=== PATIENT | female | born 1990 | race Caucasian/White ===

== ENCOUNTER 2017-11-25 22:10 | Observation (INO) | payer SELFPAY ==
[~2017-11-25] VITALS: Ht 152.4 cm; Wt 70.3 kg
[~2017-11-25 22:10] MED LIST: CEPH500T7 PO; PREN-127 PO; SULF-198 PO
[2017-11-25 22:30] VITALS: BP 117/68; Ht 152.4 cm; Wt 70.3 kg
[2017-11-25] MEDS ORDERED: ACET-1966 PO (23:28)
== END 2017-11-26 00:20 | disposition home or self-care (01) ==
LOC: OB 22:10
PROVIDERS: ADMIT Student in an Organized Health Care Education/Training Program; ATTEND Student in an Organized Health Care Education/Training Program
DX: O26.892 Other specified pregnancy related conditions, second trimester (principal); Z3A.24 24 weeks gestation of pregnancy
CPT/HCPCS: 81001; G0378; G0379

== ENCOUNTER 2018-01-16 02:24 | Inpatient (IN) | payer SELFPAY ==
[~2018-01-16] VITALS: Ht 152.4 cm; Wt 76.2 kg
[~2018-01-16 02:24] MED LIST changes: +ACET-1966 PO
[2018-03-14] MEDS ORDERED: fentaNYL CITR 100 MCG/2 ML AMP IVP PRN (05:35)
[2018-03-14] MEDS ORDERED: METOCLOPRAMIDE 10 MG/2 ML SDV IVP PRN (05:35)
[2018-03-14] MEDS ORDERED: FAMOTIDINE(*) 20MG/50ML PREMIX 50 ML IVPB PRN (05:35)
[2018-03-14] MEDS ORDERED: cefOXitin/DEX(*) 2GM/50ML PREM 50 ML IVPB PRN (05:35)
[2018-03-14] MEDS ORDERED: LR(*) 1000 ML BAG 1,000 ML IV PRN (05:35)
[2018-03-14] MEDS ORDERED: OXYTOCIN 30 UNIT/D5LR 500 ML 500 ML IV PRN (05:35)
[2018-03-14] MEDS ORDERED: FLUSH 10 ML SYR IVP PRN (05:35)
[2018-03-14] MEDS ORDERED: LIDOCAINE 1% LOCAL 300 MG/30ML INJ PRN (05:35)
[2018-03-14 06:00] VITALS: BP 125/81; Ht 152.4 cm; Wt 76.2 kg
[2018-03-14 06:09] LABS: PLATELET COUNT, AUTOMATED 204 K/uL (150-450)
--- NOTE | 2018-03-14 08:35 | History & Physical ---
History of Present Illness Age of Patient: 27 : 9 Para or TPAL: 3144 EDC per LMP: Mar 16, 2018 Estimated Gestational Age: 39.5 Chief Complaint induction History of Present Illness The patient is a 27 year old 9 para 3144 admitted at 39 5/7 weeks estimated gestational age with an estimated date of delivery 03/16/18. Patient is admitted for induction of labor. No vaginal bleeding. Good movement and occasional contractions. She was evaluated for active labor. She had an uncomplicated course. Her record was reviewed. History Allergies: Coded Allergies: No Known Drug Allergies (Unverified , 08/16/17) Med Rec Home Meds Reported Medications Vits W-Ca,Fe,Fa(<1MG) ( VITAMINS) 1 Each Tablet, 1 EACH PO DAILY, TAB 08/16/17 Discontinued Reported Medications Acetaminophen (TYLENOL) 325 Mg Tablet, 325 MG PO, TAB 11/25/17 Exam General Exam Vital Signs Vital Signs Date Time Temp Pulse Resp B/P (MAP) Pulse Ox O2 Delivery O2 Flow Rate FiO2 03/14/18 06:00 97.8 75 16 125/81 (96) 95 Room Air Cardiovascular: Regular Rate and Rhythm Respiratory: Clear to Auscultation Abdomen: Gravid - Non-Tender Extremities: No Edema Cervical Dialation: 4 Cervical Effacement (%): 75 Cervical Consistency: Soft Cervical Position: Mid Station: 0 Presentation: Vertex Uterine Contractions(Q min): 3 Fetus Heart Tones: 120 FHT Category: I Medical Decision Making Data Points Result Diagram: 03/14/18 0602 Assessment and Plan Problems: (1) , normal subsequent Assessment & Plan: elective induction started on pitocin this am AROM clear fluid will monitor for change in cervix Copies to: HERMINIA SANCHEZ MD, JOHN MD Mar 14, 2018 08:35
[2018-03-14] MEDS ORDERED: MAGNESIUM HYDROXIDE* 30ML UDCP PO PRN (09:55)
[2018-03-14] MEDS ORDERED: ACETAMINOPHEN 325 MG TAB PO PRN (09:55)
[2018-03-14] MEDS ORDERED: LANOLIN OINT 7 GM TUBE TP PRN (09:55)
[2018-03-14] MEDS ORDERED: GLYCERIN/WITCH HAZEL LEAF 1 PK TP PRN (09:55)
[2018-03-14] MEDS ORDERED: BENZOCAINE 20% 60 ML BTL TP PRN (09:55)
--- NOTE | 2018-03-14 09:57 | OB Delivery Note ---
Delivery Note Vaginal Delivery Type: Spont. Vaginal Delivery Delivery Date: Mar 14, 2018 Delivery Time: 09:38 Estimated Gestational Age(wks): 39.5 Delivery Anesthesia: Local Infant Sex: Male Weight (gms): 3[address] [place] Apgars: 1 Minute (8), 5 Minute (8) Repair Needed: Laceration, Superficial, Vaginal Estimated Blood Loss: 400 Notes: PITOCIN INDUCTION, AROM CLEAR FLUID, PROGRESSED THROUGH LABOR, PUSHED EFFECTIVELY DELIVERED WITHOUT COMPLICATIONS, SUPERFICIAL LACERATION REPAIRED WITH 3-0 VICRYL Data Reporting Analyst in Attendence: No Copies to: HERMINIA SANCHEZ MD, JOHN MD Mar 14, 2018 09:57
[2018-03-14] MEDS: HYDROCORTISONE 2.5% CR 30GM TB PR PRN (10:45)
[2018-03-14] MEDS: HYDROmorphone HCL 2 MG TAB PO PRN ×3 (10:45→20:30)
[2018-03-14] MEDS ORDERED: LIDO/EPI 2% MPF 1:200,000 20ML ONE (10:55)
[2018-03-14 12:00] VITALS: BP 101/64
[2018-03-14] MEDS: IBUPROFEN 800 MG TAB PO SCH (13:21)
[2018-03-14 14:50] VITALS: BP 108/65
[2018-03-14] MEDS ORDERED: IBUPROFEN 800 MG TAB PO SCH ×2 (17:00)
[2018-03-14 19:30] VITALS: BP 104/67
[2018-03-14] MEDS: DOCUSATE CALCIUM 240 MG CAP PO SCH (20:29)
[2018-03-14 23:05] VITALS: BP 115/81
[2018-03-15] MEDS: IBUPROFEN 800 MG TAB PO SCH ×3 (00:48→17:49)
[2018-03-15] MEDS: HYDROmorphone HCL 2 MG TAB PO PRN ×3 (03:23→20:18)
[2018-03-15 03:30] VITALS: BP 118/77
[2018-03-15] MEDS: HYDROCORTISONE 2.5% CR 30GM TB PR PRN (03:31)
[2018-03-15 07:40] VITALS: BP 122/70
[2018-03-15] MEDS ORDERED: ONDANSETRON 4 MG/2 ML VIAL IVP PRN (08:25)
--- NOTE | 2018-03-15 08:26 | OB/GYN Progress Note ---
OB Subjective Progress Notes Subjective Pain controlled, Tolerating diet and activity. Baby . Normal lochia. GI: POS Nausea, POS Flatus, NEG Vomiting : Voiding Well Pain: Mild OB Objective Physical Exam Vital Signs Date Time Temp Pulse Resp B/P (MAP) Pulse Ox O2 Delivery O2 Flow Rate FiO2 03/15/18 03:30 97.6 53 19 118/77 (91) Room Air 03/14/18 12:00 100 Cardiovascular: Regular Rate and Rhythm Respiratory: Clear to Auscultation Abdomen: Fundus Firm Extremities: No Edema Result Diagram: 03/15/18 0614 Assessment and Plan Problems: (1) , normal subsequent Status: Resolved (2) care following vaginal delivery Assessment & Plan: Pain controlled, Tolerating activity, some nausea this am. Baby . Normal lochia. HERMINIA SANCHEZ MD Mar 15, 2018 08:26
[2018-03-15] MEDS ORDERED: HYDR2TAB4 PO (08:39)
[2018-03-15] MEDS ORDERED: IBUP800T37 PO (08:39)
--- NOTE | 2018-03-15 08:40 | OB/GYN Discharge Summary ---
Discharge Summary Reason for Hosp/Final Diag: (1) , normal subsequent Status: Resolved (2) care following vaginal delivery Hospital Course & Plan: Vaginal delivery on day 1, Pain controlled, Tolerating diet and activity. Baby . Normal lochia. Lates Vital Signs Vital Signs Date Time Temp Pulse Resp B/P (MAP) Pulse Ox O2 Delivery O2 Flow Rate FiO2 03/15/18 03:30 97.6 53 19 118/77 (91) Room Air 03/14/18 12:00 100 Weight (Pounds): 168 Result Diagram: 03/15/18 0614 Condition: Improved Discharge: Home, Self [facility] Meds Active Scripts Ibuprofen (IBUPROFEN) 800 Mg Tablet, 1 TAB PO Q8H, #30 TAB 0 Refills Take with food every 8 hours. Prov:HERMINIA HANLEY MD 03/15/18 Hydromorphone Hcl (HYDROMORPHONE HCL) 2 Mg Tablet, 2-4 MG PO Q4H for PAIN, #20 TAB 0 Refills Prov:HERMINIA HANLEY MD 03/15/18 Reported Medications Vits W-Ca,Fe,Fa(<1MG) ( VITAMINS) 1 Each Tablet, 1 EACH PO DAILY, TAB 08/16/17 Discontinued Reported Medications Acetaminophen (TYLENOL) 325 Mg Tablet, 325 MG PO, TAB 11/25/17 Follow up with: Dr. Hanley [phone] Follow up in: 6 wks PP or PO Discharge Diet: As Tolerates Discharge Activity: Pelvic Rest Copies to: HERMINIA HANLEY MD, JOHN MD Mar 15, 2018 08:40
[2018-03-15] MEDS: MULTIVITAMINS (PRENATAL) TAB PO SCH (09:27)
[2018-03-15] MEDS: DOCUSATE CALCIUM 240 MG CAP PO SCH ×2 (09:27→20:18)
[2018-03-15] MEDS ORDERED: INFLUENZA VIRUS VAC 0.5 ML SYR IM ONLY ONE (09:55)
[2018-03-15] MEDS ORDERED: DIPHTH/TETANUS/ACEL. PERTUSSIS IM ONLY ONE (09:55)
[2018-03-15] MEDS ORDERED: MEASLES,MUMP,RUBELLA VAC 0.5ML SUBQ ONE (09:55)
[2018-03-15 12:00] VITALS: BP 104/69
[2018-03-15 16:30] VITALS: BP 108/76
[2018-03-15 19:30] VITALS: BP 112/74
[2018-03-15 23:30] VITALS: BP 114/66
[2018-03-16] MEDS: IBUPROFEN 800 MG TAB PO SCH ×2 (01:09→08:39)
[2018-03-16 06:35] VITALS: BP 109/70
[2018-03-16] MEDS: HYDROCORTISONE 2.5% CR 30GM TB PR PRN (06:37)
[2018-03-16] MEDS: HYDROmorphone HCL 2 MG TAB PO PRN ×2 (06:37→11:03)
[2018-03-16 08:00] VITALS: BP 101/66
--- NOTE | 2018-03-16 08:24 | OB/GYN Progress Note ---
OB Subjective Progress Notes Subjective Doing good. Reports pain controlled. Tolerating PO pain medications. Lochia appropriate. Voiding with out difficulty. GI: NEG Nausea, NEG Vomiting, NEG Flatus, NEG Bowel Movement : Voiding Well, Vaginal Bleeding, Scant Pain: Mild, Tolerating PO Pain Meds Neurological: No Headache, No Other Eyes: No Visual Disturbances OB Objective Physical Exam Vital Signs Date Time Temp Pulse Resp B/P (MAP) Pulse Ox O2 Delivery O2 Flow Rate FiO2 03/16/18 06:35 98.2 64 16 109/70 (83) Room Air 03/14/18 12:00 100 General Appearance: Alert/Awake/No Acute Distress Neurological: No Gross deficits Eyes: Normal Extraocular Movement & Vison, PERRLA ENT: Normal Neck: No Masses Cardiovascular: Normal Rhythm & Peripheral Pulses, Regular Rate and Rhythm Respiratory: No Respiratory Distress, Clear to Auscultation Abdomen: Fundus Firm Extremities: No Edema Result Diagram: 03/15/18 0614 Assessment and Plan ROVING WEIGHT GAUGER Assessment: Stable ROVING WEIGHT GAUGER Plan: Discharge Home Today Problems: (1) , normal subsequent Status: Resolved (2) care following vaginal delivery Assessment & Plan: Plan for discharge today. NAYANA ARTEAGA DO Mar 16, 2018 08:24
[2018-03-16] MEDS: DOCUSATE CALCIUM 240 MG CAP PO SCH (08:39)
[2018-03-16] MEDS: MULTIVITAMINS (PRENATAL) TAB PO SCH (08:39)
== END 2018-03-16 11:55 | disposition home or self-care (01) | DRG 775 ==
LOC: OB 03-14 05:34
PROVIDERS: ADMIT Obstetrics & Gynecology; ATTEND Obstetrics & Gynecology
PROC: 10E0XZZ Delivery of Products of Conception, External Approach (ICD-10-PCS; principal; 2018-03-14)
PROC: 10907ZC Drainage of Amniotic Fluid, Therapeutic from Products of Conception, Via Natural or Artificial Opening (ICD-10-PCS; 2018-03-14)
PROC: 0HQ9XZZ Repair Perineum Skin, External Approach (ICD-10-PCS; 2018-03-14)
PROC: 3E033VJ Introduction of Other Hormone into Peripheral Vein, Percutaneous Approach (ICD-10-PCS; 2018-03-14)
DX: O70.0 First degree perineal laceration during delivery (principal); Z3A.39 39 weeks gestation of pregnancy; Z37.0 Single live birth
CPT/HCPCS: 36415; 85025; 85027; 86850; 86900; 86901; J2405; J2590; J3010; J7120

== ENCOUNTER 2018-10-15 12:20 | Emergency (ER) | payer SELFPAY ==
[2018-03-14 06:00] VITALS: Wt 72.6 kg
[~2018-10-15 12:20] MED LIST changes: +HYDR2TAB4 PO; +IBUP800T37 PO
[2018-10-15 12:25] VITALS: BP 155/107
[2018-10-15] MEDS ORDERED: LIDOCAINE 2% VISC SLN 15ML UDC PO ONE (12:45)
[2018-10-15] MEDS ORDERED: MAG HYD/AL HYD/SIMETH 30ML UDC PO ONE (13:05)
--- NOTE | 2018-10-15 13:13 | ER Report ---
History and Physical Time Seen By MD: 12:38 Hx. of Stated Complaint: PATIENT REPORTS THAT HER CHEST HURTS AND SHE CAN'T BREATHE. SHE IS SPEAKING IN FULL SENTENCES AND HAS NO SIGNS OF RESPIRATORY DISTRESS HPI/ROS CHIEF COMPLAINT: Chest pain HISTORY OF PRESENT ILLNESS: 27-year-old female presents with central chest pain that occurred when she was breast-feeding her son last night at approximately 10:00. She states pain is sharp, nonradiating, 7 out of 10. Pain was initially constant though has been intermittent since zero 200. She has never had this pain before. Pain is associated with mild shortness of breath. Also associated with nausea. No fevers, no vomiting, no cough, no stomach pain. No swelling in legs. No history of DVT or PE. No history of cardiac disease young age the family. no pain with meals or with exertion. REVIEW OF SYSTEMS: Constitutional: No fever, no chills. Eyes: No discharge. ENT: No sore throat. Cardiovascular: above Respiratory: above Gastrointestinal: No abdominal pain, no vomiting. Genitourinary: no change in urination Musculoskeletal: No back pain. Skin: No rashes. Neurological: No headache. Remainder of the 14 system rev: Yes Allergies: Coded Allergies: No Known Drug Allergies (Unverified , 08/16/17) Home Meds Discontinued Reported Medications Vits W-Ca,Fe,Fa(<1MG) ( VITAMINS) 1 Each Tablet, 1 EACH PO DAILY, TAB 08/16/17 Discontinued Scripts Ibuprofen (IBUPROFEN) 800 Mg Tablet, 1 TAB PO Q8H, #30 TAB 0 Refills Take with food every 8 hours. Prov:HERMINIA SANCHEZ MD 03/15/18 Hydromorphone Hcl (HYDROMORPHONE HCL) 2 Mg Tablet, 2-4 MG PO Q4H for PAIN, #20 TAB 0 Refills Prov:HERMINIA SANCHEZ MD 03/15/18 Reviewed Nurses Notes: Yes Hx Smoking: No Smoking Status: Never Smoker Exposure to Second Hand Smoke?: Yes Hx Substance Use Disorder: No Hx Alcohol Use: No Constitutional Vital Sign - Last 24 Hours 10/15/18 12:25 Temp 97.9 Pulse 82 Resp 20 B/P (MAP) 155/107 Pulse Ox 94 O2 Delivery Room Air Physical Exam General Appearance: The patient is alert, has no immediate need for airway protection and no signs of toxicity. Eyes: Pupils equal and round no pallor or injection. ENT, Mouth: Mucous membranes are moist. Respiratory: There are no retractions, lungs are clear to auscultation. Cardiovascular: Regular rate and rhythm. Gastrointestinal: Abdomen is soft; pt has epigastric ttp that partially reproduces pain; part of pain is just above epigastrum at mid sternum no masses, bowel sounds normal. Neurological: alert, oriented, moves all extremities Skin: Warm and dry, no rashes. Musculoskeletal: Neck is supple non tender. Extremities are nontender, nonswollen and have full range of motion. Chest wall ttp reproduces remainder of sympotms DIFFERENTIAL DIAGNOSIS: After history and physical exam differential diagnosis was considered for chest pain including but not limited to myocardial ischemia, pericarditis pulmonary embolus, chest wall pain, pleural inflammation and pulmonary infectious causes.abdominal pain including but not limited to appendicitis, cholecystitis, gastritis and urinary tract infection, PUD or complication of Medical Decision Making Data Points Result Diagram: 10/15/18 1259 10/15/18 1259 Laboratory Hematology Test 10/15/18 12:59 Red Blood Count 5.22 M/uL (4.17-5.56) Mean Corpuscular Volume 83.7 fL (80.0-96.0) Mean Corpuscular Hemoglobin 29.4 pg (26.0-33.0) Mean Corpuscular Hemoglobin Concent 35.1 g/dL (32.0-36.0) Red Cell Distribution Width 12.7 % (11.5-14.5) Mean Platelet Volume 7.7 fL (7.2-11.1) Neutrophils (%) (Auto) 58.6 % (39.4-72.5) Lymphocytes (%) (Auto) 32.7 % (17.6-49.6) Monocytes (%) (Auto) 6.6 % (4.1-12.4) Eosinophils (%) (Auto) 1.3 % (0.4-6.7) Basophils (%) (Auto) 0.8 % (0.3-1.4) Nucleated RBC Relative Count (auto) 0.1 /100WBC Neutrophils # (Auto) 3.5 K/uL (2.0-7.4) Lymphocytes # (Auto) 2.0 K/uL (1.3-3.6) Monocytes # (Auto) 0.4 K/uL (0.3-1.0) Eosinophils # (Auto) 0.1 K/uL (0.0-0.5) Basophils # (Auto) 0.0 K/uL (0.0-0.1) Nucleated RBC Absolute Count (auto) 0.01 K/uL D-Dimer Quantitative (PE/DVT) < 0.27 ug/ml (0-0.50) Sodium Level 142 mmol/L (137-145) Potassium Level 3.6 mmol/L (3.5-5.0) Chloride Level 106 mmol/L (98-107) Carbon Dioxide Level 25 mmol/L (22-31) Blood Urea Nitrogen 9 mg/dl (7-18) Creatinine 0.70 mg/dl (0.52-1.04) Glomerular Filtration Rate Calc > 60.0 Random Glucose 77 mg/dl (75-110) Calcium Level 8.9 mg/dl (8.4-10.2) Total Bilirubin 0.3 mg/dl (0.2-1.3) Aspartate Amino Transf (AST/SGOT) 19 U/L (0-35) Alanine Aminotransferase (ALT/SGPT) 33 U/L (0-56) Alkaline Phosphatase 74 U/L (0-126) Total Protein 7.8 g/dl (6.3-8.2) Albumin 4.3 g/dl (3.5-5.0) Lipase 80 U/L (23-300) Chemistry Test 10/15/18 12:59 White Blood Count 6.0 k/uL (4.5-11.0) Red Blood Count 5.22 M/uL (4.17-5.56) Hemoglobin 15.4 g/dL (12.0-16.0) Hematocrit 43.7 % (34.0-47.0) Mean Corpuscular Volume 83.7 fL (80.0-96.0) Mean Corpuscular Hemoglobin 29.4 pg (26.0-33.0) Mean Corpuscular Hemoglobin Concent 35.1 g/dL (32.0-36.0) Red Cell Distribution Width 12.7 % (11.5-14.5) Platelet Count 287 K/uL (150-450) Mean Platelet Volume 7.7 fL (7.2-11.1) Neutrophils (%) (Auto) 58.6 % (39.4-72.5) Lymphocytes (%) (Auto) 32.7 % (17.6-49.6) Monocytes (%) (Auto) 6.6 % (4.1-12.4) Eosinophils (%) (Auto) 1.3 % (0.4-6.7) Basophils (%) (Auto) 0.8 % (0.3-1.4) Nucleated RBC Relative Count (auto) 0.1 /100WBC Neutrophils # (Auto) 3.5 K/uL (2.0-7.4) Lymphocytes # (Auto) 2.0 K/uL (1.3-3.6) Monocytes # (Auto) 0.4 K/uL (0.3-1.0) Eosinophils # (Auto) 0.1 K/uL (0.0-0.5) Basophils # (Auto) 0.0 K/uL (0.0-0.1) Nucleated RBC Absolute Count (auto) 0.01 K/uL D-Dimer Quantitative (PE/DVT) < 0.27 ug/ml (0-0.50) Glomerular Filtration Rate Calc > 60.0 Calcium Level 8.9 mg/dl (8.4-10.2) Total Bilirubin 0.3 mg/dl (0.2-1.3) Aspartate Amino Transf (AST/SGOT) 19 U/L (0-35) Alanine Aminotransferase (ALT/SGPT) 33 U/L (0-56) Alkaline Phosphatase 74 U/L (0-126) Total Protein 7.8 g/dl (6.3-8.2) Albumin 4.3 g/dl (3.5-5.0) Lipase 80 U/L (23-300) Coagulation Test 10/15/18 12:59 D-Dimer Quantitative (PE/DVT) < 0.27 ug/ml EKG/Imaging EKG Interpretation 12 lead EKG: Rhythm: normal sinus rhythm [place]: normal QRS: normal ST segments: normal no st elevations or depressions. Borderline qt Monitor Interpretation: Normal Sinus Rhythm ED Course/Re-evaluation ED Course Pt tolerates po, does not feel relief with maalox. Most c/w msk pain, after consideration of more serious etiologies including acs (very low pretest prob, HEART score < 4 even without trop), VTE (Dimer negative), pneumonia/ptx/pericarditis; ekg/cxr unremarkable. Not orthostatic on ambulation at d/c (pulse 73-80 upon standing). D/c wtih SRP's, discussed importance of hydration. Pt asks for work note. Decision to Disposition Date: Oct 15, 2018 Decision to Disposition Time: 13:44 Depart Departure Latest Vital Signs Vital Signs Date Time Temp Pulse Resp B/P (MAP) Pulse Ox O2 Delivery O2 Flow Rate FiO2 10/15/18 12:25 97.9 82 20 155/107 94 Room Air Impression: Primary Impression: Chest pain Condition: Improved Disposition: HOME OR SELF-CARE Departure Forms: ER Transition Record, Medications Reconciliation, Off Work/School Form, School or Work Release?: Work Number of days to be released: 1 Patient Portal Information Patient Instructions: Chest Pain (ED), Chest Wall Pain (ED) Additional Instructions: Please return for any worsening symptoms or any concerns. It is a low likelihood that you have a serious cause right now, but if you have any worsening or concerning symptoms, please return immediately for further evaluation. Problem Qualifiers Primary Impression: Chest pain Chest pain type: unspecified Qualified Codes: R07.9 - Chest pain, unspecified NBA OLSEN MD Oct 15, 2018 13:13
--- NOTE | 2018-10-15 13:28 | RADIOLOGY IMAGING REPORT ---
[place] [facility] [place] NAME: Aneta Sanders : 1990 MR: [id number] V: [id number] EXAM DATE: ORDERING PHYSICIAN: NBA OLSEN TECHNOLOGIST: [place] [facility] [place] : 1990 Visit/Account:[id number] Date of Sevice: 10/15/2018 2 VIEWS CHEST INDICATION: Chest pain COMPARISON: None available FINDINGS: Heart size within normal limits. There is no focal infiltrate or lobar consolidation. There is no pneumothorax or pleural effusion. IMPRESSION: 1. No acute cardiopulmonary process. Report Dictated By: Brooks Rizvi MD at 10/15/2018 1:23 PM Report E-Signed By: Brooks Rizvi MD at 10/15/2018 1:23 PM WSN:[id number]
[2018-10-15 13:34] LABS: PLATELET COUNT, AUTOMATED 287 K/uL (150-450)
[2018-10-15] MEDS ORDERED: IBUPROFEN 600 MG TAB PO ONE (13:50)
--- NOTE | 2018-10-15 16:57 | EKG ---
FACILITY: [facility] PATIENT NAME: MICHAEL LOPEZ : [id number] MR: [id number] V: [id number] EXAM DATE: ORDERING PHYSICIAN: NBA OLSEN TECHNOLOGIST: SHAKIRA Test Reason : CP Blood Pressure : / mmHG Vent. Rate : 082 BPM Atrial Rate : 082 BPM P-R Int : 154 ms QRS Dur : 090 ms QT Int : 412 ms P-R-T Axes : 045 012 015 degrees QTc Int : 481 ms Normal sinus rhythm Nonspecific T wave abnormality Prolonged QT Abnormal ECG No previous ECGs available Confirmed by BENJA ARAUJO ([id number]) on 10/16/2018 6:18:38 AM Referred By: RAÚL Confirmed By:BENJA ARAUJO
== END 2018-10-15 14:01 | disposition home or self-care (01) ==
LOC: ER 12:41
DX: R07.9 Chest pain, unspecified (principal)
CPT/HCPCS: 71046; 82040; 82247; 82310; 82374; 82435; 82565; 82947; 83690; 84075; 84132; 84155; 84295; 84450; 84460; 84520; 85025; 85379; 93005; 99284

== ENCOUNTER 2018-11-03 17:52 | Emergency (ER) | payer SELFPAY ==
[2018-03-14 06:00] VITALS: Wt 71.7 kg
--- NOTE | 2018-11-03 18:13 | ER Report ---
History and Physical Time Seen By MD: 18:10 Hx. of Stated Complaint: pt has had stabbing like pain for the past couple days, pt states she feels nauseous and is also having burning sensation with urination HPI/ROS CHIEF COMPLAINT: Lower abdominal pain HISTORY OF PRESENT ILLNESS: 28-year-old female presents ambulatory to the ER complaining of stabbing lower abdominal pain for a couple of days. She notes her pain as 6/10. She notes no alleviating or exacerbating factors. Patient is 8 months . And is breast-feeding. She notes some dysuria. Patient denies vaginal discharge. REVIEW OF SYSTEMS: Respiratory: No cough, no dyspnea. Cardiovascular: No chest pain, no palpitations. Gastrointestinal: As above Musculoskeletal: No back pain. Allergies: Coded Allergies: No Known Drug Allergies (Unverified , 08/16/17) Home Meds Active Scripts Hydrocodone Bit/Acetaminophen (NORCO 5-325 TABLET) 1 Each Tablet, 1 EACH PO Q4H PRN for PAIN, #6 TAB Prov:SABA GALVIN DO 11/03/18 Cephalexin Monohydrate (CEPHALEXIN) 500 Mg Cap, 500 MG PO TID for infection, #20 CAP TAKE 1 CAPSULE BY MOUTH EVERY SIX HOURS Prov:SABA GALVIN DO 11/03/18 Reviewed Nurses Notes: Yes Old Medical Records Reviewed: Yes Hx Smoking: No Smoking Status: Never Smoker Exposure to Second Hand Smoke?: Yes Hx Substance Use Disorder: No Hx Alcohol Use: No Constitutional Vital Sign - Last 24 Hours 11/03/18 11/03/18 18:03 19:08 Temp 98.6 Pulse 66 85 Resp 18 16 B/P (MAP) 139/98 127/85 (99) Pulse Ox 93 95 O2 Delivery Room Air Room Air Physical Exam Vital signs stable, afebrile, pulse ox normal General Appearance: The patient is alert, has no immediate need for airway protection and no current signs of toxicity. Mild distress, skin warm, dry, pink Eyes: Pupils equal and round no injection. Respiratory: Chest is non tender, lungs are clear to auscultation. Cardiac: regular rate and rhythm Gastrointestinal: Abdomen is soft, mild suprapubic tenderness, no rebound or guarding, no masses, bowel sounds normal. Musculoskeletal: Neck: Neck is supple and non tender. No lymphadenopathy Extremities have full range of motion and are non tender. Skin: No rashes or lesions. DIFFERENTIAL DIAGNOSIS: After history and physical exam differential diagnosis was considered for abdominal pain including but not limited to appendicitis, cholecystitis, gastritis and urinary tract infection. Medical Decision Making Data Points Result Diagram: 11/03/18181111/03/182 Laboratory Hematology Test 11/03/18 18:12 Red Blood Count 5.10 M/uL (4.17-5.56) Mean Corpuscular Volume 84.7 fL (80.0-96.0) Mean Corpuscular Hemoglobin 28.9 pg (26.0-33.0) Mean Corpuscular Hemoglobin Concent 34.2 g/dL (32.0-36.0) Red Cell Distribution Width 13.1 % (11.5-14.5) Mean Platelet Volume 7.5 fL (7.2-11.1) Neutrophils (%) (Auto) 61.4 % (39.4-72.5) Lymphocytes (%) (Auto) 31.3 % (17.6-49.6) Monocytes (%) (Auto) 5.3 % (4.1-12.4) Eosinophils (%) (Auto) 1.4 % (0.4-6.7) Basophils (%) (Auto) 0.6 % (0.3-1.4) Nucleated RBC Relative Count (auto) 0.0 /100WBC Neutrophils # (Auto) 3.9 K/uL (2.0-7.4) Lymphocytes # (Auto) 2.0 K/uL (1.3-3.6) Monocytes # (Auto) 0.3 K/uL (0.3-1.0) Eosinophils # (Auto) 0.1 K/uL (0.0-0.5) Basophils # (Auto) 0.0 K/uL (0.0-0.1) Nucleated RBC Absolute Count (auto) 0.00 K/uL Urine Color Yellow Urine Clarity Cloudy Urine pH 5.0 pH (4.8-9.5) Urine Specific [place] 1.038 Urine Protein 30 mg/dL (NEGATIVE) Urine Glucose (UA) Negative mg/dL (NEGATIVE) Urine Ketones Negative mg/dL (NEGATIVE) Urine Blood Negative (NEGATIVE) Urine Nitrite Negative (NEGATIVE) Urine Bilirubin Negative (NEGATIVE) Urine Urobilinogen Negative mg/dL (0.2-1.9) Urine Leukocyte Esterase Trace (NEGATIVE) Urine RBC None /HPF (0-2/HPF) Urine WBC 21 /HPF (0-5/HPF) Urine Squamous Epithelial Cells Many /LPF (</=FEW) Urine Bacteria Negative /HPF (NONE-FEW) Urine Mucus Few /HPF (NONE-FEW) Sodium Level 141 mmol/L (137-145) Potassium Level 3.4 mmol/L (3.5-5.0) Chloride Level 106 mmol/L (98-107) Carbon Dioxide Level 26 mmol/L (22-31) Blood Urea Nitrogen 10 mg/dl (7-18) Creatinine 0.90 mg/dl (0.52-1.04) Glomerular Filtration Rate Calc > 60.0 Random Glucose 87 mg/dl (75-110) Calcium Level 9.0 mg/dl (8.4-10.2) Total Bilirubin 0.2 mg/dl (0.2-1.3) Aspartate Amino Transf (AST/SGOT) 25 U/L (0-35) Alanine Aminotransferase (ALT/SGPT) 31 U/L (0-56) Alkaline Phosphatase 95 U/L (0-126) Total Protein 7.3 g/dl (6.3-8.2) Albumin 4.0 g/dl (3.5-5.0) Amylase Level 234 U/L (0-110) Lipase 133 U/L (23-300) Human Chorionic Gonadotropin, Qual Negative (NEGATIVE) Chemistry Test 11/03/18 18:12 White Blood Count 6.3 k/uL (4.5-11.0) Red Blood Count 5.10 M/uL (4.17-5.56) Hemoglobin 14.7 g/dL (12.0-16.0) Hematocrit 43.2 % (34.0-47.0) Mean Corpuscular Volume 84.7 fL (80.0-96.0) Mean Corpuscular Hemoglobin 28.9 pg (26.0-33.0) Mean Corpuscular Hemoglobin Concent 34.2 g/dL (32.0-36.0) Red Cell Distribution Width 13.1 % (11.5-14.5) Platelet Count 306 K/uL (150-450) Mean Platelet Volume 7.5 fL (7.2-11.1) Neutrophils (%) (Auto) 61.4 % (39.4-72.5) Lymphocytes (%) (Auto) 31.3 % (17.6-49.6) Monocytes (%) (Auto) 5.3 % (4.1-12.4) Eosinophils (%) (Auto) 1.4 % (0.4-6.7) Basophils (%) (Auto) 0.6 % (0.3-1.4) Nucleated RBC Relative Count (auto) 0.0 /100WBC Neutrophils # (Auto) 3.9 K/uL (2.0-7.4) Lymphocytes # (Auto) 2.0 K/uL (1.3-3.6) Monocytes # (Auto) 0.3 K/uL (0.3-1.0) Eosinophils # (Auto) 0.1 K/uL (0.0-0.5) Basophils # (Auto) 0.0 K/uL (0.0-0.1) Nucleated RBC Absolute Count (auto) 0.00 K/uL Urine Color Yellow Urine Clarity Cloudy Urine pH 5.0 pH (4.8-9.5) Urine Specific [place] 1.038 Urine Protein 30 mg/dL (NEGATIVE) Urine Glucose (UA) Negative mg/dL (NEGATIVE) Urine Ketones Negative mg/dL (NEGATIVE) Urine Blood Negative (NEGATIVE) Urine Nitrite Negative (NEGATIVE) Urine Bilirubin Negative (NEGATIVE) Urine Urobilinogen Negative mg/dL (0.2-1.9) Urine Leukocyte Esterase Trace (NEGATIVE) Urine RBC None /HPF (0-2/HPF) Urine WBC 21 /HPF (0-5/HPF) Urine Squamous Epithelial Cells Many /LPF (</=FEW) Urine Bacteria Negative /HPF (NONE-FEW) Urine Mucus Few /HPF (NONE-FEW) Glomerular Filtration Rate Calc > 60.0 Calcium Level 9.0 mg/dl (8.4-10.2) Total Bilirubin 0.2 mg/dl (0.2-1.3) Aspartate Amino Transf (AST/SGOT) 25 U/L (0-35) Alanine Aminotransferase (ALT/SGPT) 31 U/L (0-56) Alkaline Phosphatase 95 U/L (0-126) Total Protein 7.3 g/dl (6.3-8.2) Albumin 4.0 g/dl (3.5-5.0) Amylase Level 234 U/L (0-110) Lipase 133 U/L (23-300) Human Chorionic Gonadotropin, Qual Negative (NEGATIVE) Urinalysis Test 11/03/18 18:12 Urine Color Yellow Urine Clarity Cloudy Urine pH 5.0 pH (4.8-9.5) Urine Specific [place] 1.038 Urine Protein 30 mg/dL (NEGATIVE) Urine Glucose (UA) Negative mg/dL (NEGATIVE) Urine Ketones Negative mg/dL (NEGATIVE) Urine Blood Negative (NEGATIVE) Urine Nitrite Negative (NEGATIVE) Urine Bilirubin Negative (NEGATIVE) Urine Urobilinogen Negative mg/dL (0.2-1.9) Urine Leukocyte Esterase Trace (NEGATIVE) Urine RBC None /HPF (0-2/HPF) Urine WBC 21 /HPF (0-5/HPF) Urine Squamous Epithelial Cells Many /LPF (</=FEW) Urine Bacteria Negative /HPF (NONE-FEW) Urine Mucus Few /HPF (NONE-FEW) Microbiology Microbiology Date/Time Source Procedure Growth Status 11/03/18 18:12 Clean Catch Midstream Ur Urine Culture - Final CONTAMINATED URINE:... Complete ED Course/Re-evaluation Clinical Indication for ER IV: Hydration, IV Access ED Course Patient was admitted to an examination room. H&P was done. The differential diagnoses was considered. Patient with a benign nonsurgical abdominal examination. She's complaining of sharp, crampy abdominal pain. She has some dysuria. Urinalysis shows a few white cells and leukocyte esterase. Patient be treated for urinary tract infection. She is breast-feeding. She is covered with Keflex. Patient advised to increase her fluid intake. Follow up with [facility] if unimproved in 2-3 days. Decision to Disposition Date: Nov 03, 2018 Decision to Disposition Time: 19:00 Depart Departure Latest Vital Signs Vital Signs Date Time Temp Pulse Resp B/P (MAP) Pulse Ox O2 Delivery O2 Flow Rate FiO2 11/03/18 19:08 85 16 127/85 (99) 95 Room Air 11/03/18 18:03 98.6 Impression: Primary Impression: Abdominal pain, lower Additional Impressions: Urinary tract infection Nausea alone Normal breast feeding Condition: Improved Disposition: HOME OR SELF-CARE New Scripts Hydrocodone Bit/Acetaminophen (NORCO 5-325 TABLET) 1 Each Tablet 1 EACH PO Q4H PRN for PAIN, #6 TAB Prov: SABA GALVIN DO 11/03/18 Cephalexin Monohydrate (CEPHALEXIN) 500 Mg Cap 500 MG PO TID for infection, #20 CAP TAKE 1 CAPSULE BY MOUTH EVERY SIX HOURS Prov: SABA GALVIN DO 11/03/18 Patient Instructions: Urinary Tract Infection in Women (ED) Additional Instructions: Follow-up with your primary care or [facility] if unimproved in 2-3 days Problem Qualifiers Additional Impressions: Urinary tract infection Urinary tract infection type: acute cystitis Hematuria presence: without hematuria Qualified Codes: N30.00 - Acute cystitis without hematuria SABA GALVIN DO Nov 03, 2018 18:13
[2018-11-03] MEDS ORDERED: NS(*) 0.9% 1000 ML BAG 1,000 ML IV ONE (18:14)
[2018-11-03] MEDS ORDERED: fentaNYL CITR 100 MCG/2 ML AMP IVP ONE (18:15)
[2018-11-03 18:24] LABS: PLATELET COUNT, AUTOMATED 306 K/uL (150-450)
[2018-11-03] MEDS ORDERED: HYDR-653 PO (19:02)
[2018-11-03] MEDS ORDERED: CEPH500C24 PO (19:02)
[2018-11-03 19:08] VITALS: BP 127/85
== END 2018-11-03 19:14 | disposition home or self-care (01) ==
LOC: ER 18:30
DX: R10.30 Lower abdominal pain, unspecified (principal); N30.00 Acute cystitis without hematuria; R11.0 Nausea
CPT/HCPCS: 81001; 82150; 83690; 84703; 85025; 87088; 96374; 99283; J3010; J7030; 82040; 82247; 82310; 82374; 82435; 82565; 82947; 84075; 84132; 84155; 84295; 84450; 84460; 84520

== ENCOUNTER 2019-02-18 20:49 | Emergency (ER) | payer SELFPAY ==
[2018-03-14 06:00] VITALS: Wt 72.6 kg
[~2019-02-18 20:49] MED LIST changes: +CEPH500C24 PO; +HYDR-653 PO
--- NOTE | 2019-02-18 20:55 | ER Report ---
History and Physical Time Seen By MD: 20:52 HPI/ROS CHIEF COMPLAINT: Sharp chest pain 3 days HISTORY OF PRESENT ILLNESS: 28-year-old female presents ambulatory to the ER complaining of sharp chest pain. She notes increased with deep inspiration. She's had no infectious symptoms such as URI cough sore throat fever or chills. Patient denies traumatic chest injury. Patient admits recent dental work, having tooth extracted. Patient notes no fever or chills. Patient denies leg swelling or calf pain. She notes increased pain with palpation of the chest wall. REVIEW OF SYSTEMS: Respiratory: No cough, no dyspnea. Cardiovascular: As above Gastrointestinal: No vomiting, no abdominal pain. Musculoskeletal: No back pain. Allergies: Coded Allergies: No Known Drug Allergies (Unverified , 02/18/19) Home Meds Discontinued Scripts Hydrocodone Bit/Acetaminophen (NORCO 5-325 TABLET) 1 Each Tablet, 1 EACH PO Q4H PRN for PAIN, #6 TAB Prov:SABA GALVIN DO 11/03/18 Cephalexin Monohydrate (CEPHALEXIN) 500 Mg Cap, 500 MG PO TID for infection, #20 CAP TAKE 1 CAPSULE BY MOUTH EVERY SIX HOURS Prov:SABA GALVIN DO 11/03/18 Reviewed Nurses Notes: Yes Old Medical Records Reviewed: Yes Hx Smoking: No Smoking Status: Never Smoker Exposure to Second Hand Smoke?: Yes Hx Substance Use Disorder: No Hx Alcohol Use: No Constitutional Vital Sign - Last 24 Hours 02/18/19 02/18/19 02/18/19 02/18/19 20:49 20:55 20:57 20:59 Temp 98.1 Pulse ??? 73 75 Resp 16 B/P (MAP) 130/94 133/99 (110) Pulse Ox 93 91 O2 Delivery Room Air 02/18/19 02/18/19 02/18/19 02/18/19 21:00 21:04 21:09 21:14 Pulse 72 69 76 B/P (MAP) 130/94 (106) Pulse Ox 94 94 92 02/18/19 02/18/19 02/18/19 21:19 21:24 21:29 Pulse 71 67 71 Pulse Ox 93 93 91 Physical Exam General Appearance: The patient is alert, has no immediate need for airway protection and no current signs of toxicity. Vital signs stable, afebrile, pulse ox normal HEENT: Pupils equal and round no injection. TMs normal, oropharynx without redness or exudate Respiratory: Chest is non tender, lungs are clear to auscultation.+ Chest wall tenderness along the left costal sternal margin Cardiac: regular rate and rhythm, no murmur Gastrointestinal: Abdomen is soft and non tender, no masses, bowel sounds normal. Musculoskeletal: Neck: Neck is supple and non tender. No lymphadenopathy Extremities have full range of motion and are non tender. No edema, no calf tenderness, no Homans sign Skin: No rashes or lesions. [ ] DIFFERENTIAL DIAGNOSIS: After history and physical exam differential diagnosis was considered for chest pain including but not limited to myocardial ischemia, pericarditis pulmonary embolus, chest wall pain, pleural inflammation and pulmonary infectious causes. Medical Decision Making EKG/Imaging EKG Interpretation 12 lead EK Rhythm: normal sinus rhythm [place]: normal QRS: normal ST segments: normal, no evidence of ischemia or dysrhythmia Imaging X-ray: Single view portable chest x-ray was obtained. I viewed the images myself on the PACS system. My interpretation of the images is: No infiltrate, no effusion, normal mediastinum, comparison to previous EKG, 10/15/18, no significant change. The radiologist interpretation had no clinically signif icant variation from this interpretation. ED Course/Re-evaluation ED Course Patient was admitted to an examination room. H&P was done. The differential diagnoses was considered. On clinical examination. Patient has chest wall tenderness on the costal sternal margin of the left side of the chest. An EKG is performed which is unremarkable. A chest x-ray is unremarkable. Patient will be treated for costochondritis. She is advised high-dose ibuprofen 3 times a day with food. She is advised warm compresses to the chest wall. She's given 4 Lortab 5/325 to take home for temporary pain relief. Patient's advised to follow-up with primary care if unimproved in 3-5 days. Decision to Disposition Date: Feb 18, 2019 Decision to Disposition Time: 21:20 Depart Departure Latest Vital Signs Vital Signs Date Time Temp Pulse Resp B/P (MAP) Pulse Ox O2 Delivery O2 Flow Rate FiO2 02/18/19 21:29 71 91 02/18/19 21:00 130/94 (106) 02/18/19 20:55 98.1 16 Room Air Impression: Primary Impression: Costochondritis Condition: Improved Disposition: HOME OR SELF-CARE Patient Instructions: Costochondritis (ED) Additional Instructions: Take ibuprofen 200 mg 3-4 tablets 3 times a day with food Apply heating pad or warm compresses to your chest wall in the affected area Take hydrocodone as needed for acute pain relief Follow-up with primary care if unimproved in 3-5 days. SABA GALVIN DO Feb 18, 2019 20:55
[2019-02-18 21:00] VITALS: BP 130/94
--- NOTE | 2019-02-18 21:07 | EKG ---
FACILITY: [facility] PATIENT NAME: MICHAEL LOPEZ : [id number] MR: [id number] V: [id number] EXAM DATE: ORDERING PHYSICIAN: SABA GALVIN TECHNOLOGIST: ANTELMO Test Reason : CHEST PAIN Blood Pressure : / mmHG Vent. Rate : 071 BPM Atrial Rate : 071 BPM P-R Int : 154 ms QRS Dur : 090 ms QT Int : 426 ms P-R-T Axes : 048 022 027 degrees QTc Int : 462 ms Sinus rhythm No acute appearing findings Confirmed by SABI BAILEY ([id number]) on 02/19/2019 6:22:03 AM Referred By: Confirmed By:SABI BAILEY
--- NOTE | 2019-02-18 21:22 | RADIOLOGY IMAGING REPORT ---
FACILITY: [facility] [place] PATIENT NAME: Aneta Sanders : 1990 MR: [id number] V: [id number] EXAM DATE: ORDERING PHYSICIAN: SABA GALVIN TECHNOLOGIST: Location: [facility] Patient: Aneta Sanders : 1990 Visit/Account:[id number] Date of Sevice: 02/18/2019 AP CHEST 02/18/2019 8:55 PM. INDICATION: Sharp chest pain for 3 days. COMPARISON: 10/15/2018. FINDINGS: Lungs are well-expanded. There is no consolidation. No pleural effusion or pneumothorax. Heart size i s normal. IMPRESSION: No acute abnormality or significant change. Report Dictated By: Jaret Barney MD at 02/18/2019 9:17 PM Report E-Signed By: Jaret Barney MD at 02/18/2019 9:17 PM WSN:[id number]
[2019-02-18] MEDS ORDERED: ACET/HYDROC 5/325MG TH ER ONLY 2 TAB/BOTTLE PO ONE ×2 (21:25)
== END 2019-02-18 21:34 | disposition home or self-care (01) ==
LOC: ER 21:22
DX: M94.0 Chondrocostal junction syndrome [Tietze] (principal)
CPT/HCPCS: 71045; 93005; 99283

== ENCOUNTER 2019-04-14 16:57 | Emergency (ER) | payer SELFPAY ==
[2018-03-14 06:00] VITALS: Wt 72.6 kg
--- NOTE | 2019-04-14 17:34 | ER Report ---
History and Physical Time Seen By MD: 17:34 HPI/ROS CHIEF COMPLAINT: UTI symptoms HISTORY OF PRESENT ILLNESS: This is a 28-year-old female presents to the emergency department for UTI symptoms. Patient states that over the last 3 days she's had urinary frequency, urgency and painful urination. Burning type of sensation. She states that she's got some left lower quadrant in her left side pain. She also states that she could potentially be , last menstrual cycle was 2 months ago, she is irregular, states that "every time I get a UTI and , I have 5 kids". She denies fevers or chills. No nausea or vomiting. No chest pain or shortness of breath. REVIEW OF SYSTEMS: Respiratory: No cough, no dyspnea. Cardiovascular: No chest pain, no palpitations. Gastrointestinal: No vomiting, no abdominal pain. Genitourinary: As above. Musculoskeletal: No back pain. Allergies: Coded Allergies: No Known Drug Allergies (Unverified , 04/14/19) Home Meds Active Scripts Cephalexin 500 Mg Tab (KEFLEX 500 MG TAB) 500 Mg Tablet, 500 MG PO Q12H for 5 Days, #10 TAB Prov:WALTER FINLEY Nicholas PROCESSING LEAD-BC 04/14/19 Past Medical/Surgical History The patient has a past medical and surgical history of tonsillectomy, left oophorectomy, , suicide attempt. Reviewed Nurses Notes: Yes Hx Smoking: No Smoking Status: Never Smoker Exposure to Second Hand Smoke?: Yes Hx Substance Use Disorder: No Hx Alcohol Use: No Constitutional Vital Sign - Last 24 Hours 04/14/19 18:12 Temp 98.4 Pulse 73 Resp 16 B/P (MAP) 141/99 Pulse Ox 95 O2 Delivery Room Air Physical Exam General Appearance: The patient is alert, has no immediate need for airway protection and no current signs of toxicity. Eyes: Pupils equal and round no injection. Respiratory: Chest is non tender, lungs are clear to auscultation. Cardiac: regular rate and rhythm. Gastrointestinal: Abdomen is soft, mild left lower quadrant tenderness, mild left CVA tenderness. no masses, bowel sounds normal. Musculoskeletal: Neck: Neck is supple and non tender. Extremities have full range of motion and are non tender. Skin: No rashes or lesions. DIFFERENTIAL DIAGNOSIS: After history and physical exam differential diagnosis was considered for abdominal pain in a female including but not limited to ovarian cyst, pelvic inflammatory disease, ovarian torsion, urinary tract infection, and appendicitis. Medical Decision Making Data Points Laboratory Hematology Test 04/14/19 17:05 Urine Color Yellow Urine Clarity Cloudy Urine pH 6.0 pH (4.8-9.5) Urine Specific [place] 1.017 Urine Protein Negative mg/dL (NEGATIVE) Urine Glucose (UA) Negative mg/dL (NEGATIVE) Urine Ketones Negative mg/dL (NEGATIVE) Urine Blood Negative (NEGATIVE) Urine Nitrite Negative (NEGATIVE) Urine Bilirubin Negative (NEGATIVE) Urine Urobilinogen Negative mg/dL (0.2-1.9) Urine Leukocyte Esterase Large (NEGATIVE) Urine RBC 3 /HPF (0-2/HPF) Urine WBC 18 /HPF (0-5/HPF) Urine Squamous Epithelial Cells Many /LPF (</=FEW) Urine Bacteria Few /HPF (NONE-FEW) Urine Mucus Few /HPF (NONE-FEW) Urine HCG, Qualitative Positive (NEGATIVE) Chemistry Test 04/14/19 17:05 Urine Color Yellow Urine Clarity Cloudy Urine pH 6.0 pH (4.8-9.5) Urine Specific [place] 1.017 Urine Protein Negative mg/dL (NEGATIVE) Urine Glucose (UA) Negative mg/dL (NEGATIVE) Urine Ketones Negative mg/dL (NEGATIVE) Urine Blood Negative (NEGATIVE) Urine Nitrite Negative (NEGATIVE) Urine Bilirubin Negative (NEGATIVE) Urine Urobilinogen Negative mg/dL (0.2-1.9) Urine Leukocyte Esterase Large (NEGATIVE) Urine RBC 3 /HPF (0-2/HPF) Urine WBC 18 /HPF (0-5/HPF) Urine Squamous Epithelial Cells Many /LPF (</=FEW) Urine Bacteria Few /HPF (NONE-FEW) Urine Mucus Few /HPF (NONE-FEW) Urine HCG, Qualitative Positive (NEGATIVE) Urinalysis Test 04/14/19 17:05 Urine Color Yellow Urine Clarity Cloudy Urine pH 6.0 pH (4.8-9.5) Urine Specific [place] 1.017 Urine Protein Negative mg/dL (NEGATIVE) Urine Glucose (UA) Negative mg/dL (NEGATIVE) Urine Ketones Negative mg/dL (NEGATIVE) Urine Blood Negative (NEGATIVE) Urine Nitrite Negative (NEGATIVE) Urine Bilirubin Negative (NEGATIVE) Urine Urobilinogen Negative mg/dL (0.2-1.9) Urine Leukocyte Esterase Large (NEGATIVE) Urine RBC 3 /HPF (0-2/HPF) Urine WBC 18 /HPF (0-5/HPF) Urine Squamous Epithelial Cells Many /LPF (</=FEW) Urine Bacteria Few /HPF (NONE-FEW) Urine Mucus Few /HPF (NONE-FEW) Urine HCG, Qualitative Positive (NEGATIVE) ED Course/Re-evaluation ED Course The patient was admitted to room. A history and physical obtained. Different diagnoses were considered. A urine was collected, showing a mild urinary tract infection, patient also requested a urine test that she has missed her cycle last 2 months, and she is irregular on her cycles, she did have a positive urine test. Results were given to the patient, she expressed understanding. I did tell her to start vitamins, follow-up with TIP PRINTER this next week, also start the antibiotics take as prescribed. Patient expressed understanding and was discharged home. Also patient denied vaginal discharge or spotting or felt odors. Decision to Disposition Date: April 14, 2019 Decision to Disposition Time: 18:57 Depart Departure Latest Vital Signs Vital Signs Date Time Temp Pulse Resp B/P (MAP) Pulse Ox O2 Delivery O2 Flow Rate FiO2 04/14/19 18:12 98.4 73 16 141/99 95 Room Air Impression: Primary Impression: Urinary tract infection Additional Impression: Condition: Improved Disposition: HOME OR SELF-CARE Referrals: [facility] MANAGER New Scripts Cephalexin 500 Mg Tab (KEFLEX 500 MG TAB) 500 Mg Tablet 500 MG PO Q12H for 5 Days, #10 TAB Prov: WALTER FINLEYP-BC 04/14/19 Patient Instructions: (ED), Urinary Tract Infection in Women (ED) Additional Instructions: Start taking vitamins for . Please establish with an TIP PRINTER in follow-up within the next week. Continue drinking plenty of water. Do not take ibuprofen, take Tylenol only. Start taking the Keflex for the urinary tract infection. Return to the ER for any concerns or worsening symptoms. Problem Qualifiers Primary Impression: Urinary tract infection Urinary tract infection type: acute cystitis Hematuria presence: without hematuria Qualified Codes: N30.00 - Acute cystitis without hematuria Additional Impression: Weeks of gestation: unspecified Qualified Codes: Z34.90 - Encounter for supervision of normal , unspecified, unspecified trimester WALTER FINLEY PROCESSING LEAD-BC April 14, 2019 17:34
[2019-04-14 18:30] VITALS: BP 125/91
[2019-04-14] MEDS ORDERED: CEPH500T7 PO (19:01)
[2019-04-14] MEDS ORDERED: CEPHALEXIN MONO 500 MG CAP PO ONE (19:05)
== END 2019-04-14 19:10 | disposition home or self-care (01) ==
LOC: ER 17:20
DX: N30.00 Acute cystitis without hematuria (principal); Z33.1 Pregnant state, incidental
CPT/HCPCS: 81001; 81025; 99283

== ENCOUNTER 2019-04-16 03:41 | Emergency (ER) | payer SELFPAY ==
[2018-03-14 06:00] VITALS: Wt 63.5 kg
[2019-04-16 03:44] VITALS: BP 130/90
[2019-04-16] MEDS ORDERED: PREN-127 PO (03:52)
--- NOTE | 2019-04-16 03:57 | ER Report ---
History and Physical Time Seen By MD: 03:57 Hx. of Stated Complaint: PATIENT STATES THAT IT HURTS TO BREATH AND SHE HAS LEFT EAR PAIN; STATES THAT IT STARTED A COUPLE DAYS AGO AND NOW SHE CAN NOT SLEEP HPI/ROS CHIEF COMPLAINT: ear pain, chest pain HISTORY OF PRESENT ILLNESS: This is a 28 year old female. She is having left ear pain. Cough with sore throat and runny nose. Has some pain in chest with breathing, but no short of breath. No fevers or chills. Current UTI, has not picked up prescription yet. diagnosed a few days ago, uncertain how far along she is. Allergies: Coded Allergies: No Known Drug Allergies (Unverified , 04/14/19) Home Meds Active Scripts Cephalexin 500 Mg Tab (KEFLEX 500 MG TAB) 500 Mg Tablet, 500 MG PO Q12H for 5 Days, #10 TAB Prov:WALTER FINLEY CARD LACER JACQUARD-BC 04/14/19 Reported Medications Vits W-Ca,Fe,Fa(<1MG) ( VITAMINS) 1 Each Tablet, 1 EACH PO DAILY, TAB 04/16/19 Reviewed Nurses Notes: Yes Hx Smoking: No Smoking Status: Never Smoker Exposure to Second Hand Smoke?: Yes Hx Substance Use Disorder: No Hx Alcohol Use: No Constitutional Vital Sign - Last 24 Hours 04/16/19 03:44 Temp 98.1 Pulse 76 Resp 17 B/P (MAP) 130/90 Pulse Ox 93 O2 Delivery Room Air Physical Exam General Appearance: Alert, no distress. Eyes: Pupils equal and round no injection. ENT: Normal oral mucosa. Moist mucous membranes. Has erythema in posterior oropharynx, some post nasal drainage. Nasal congestion. TMs normal color, but effusion bilaterally, mild redness in ear canals. No signs of otitis media, but serious present. Neck: Neck is supple and non tender. Respiratory: Chest is non tender to palpation, lungs are clear to auscultation, some pain with deep breaths. Cardiac: regular rate and rhythm, no murmurs. Skin: No rashes or lesions. DIFFERENTIAL DIAGNOSIS: After history and physical exam differential diagnosis was considered for patient with upper respiratory symptoms, some chest pain with breathing but lungs are clear. Medical Decision Making ED Course/Re-evaluation ED Course This appears to be upper respiratory infection. Ear pain is from congestion from serous otitis. No sign of acute otitis media. Recommended symptomatic treatment, Tylenol for pain. Offered chest x-ray however the patient would prefer not to do this. Recommended picking up her cephalexin from the pharmacy today to get started on that urinary tract infection. Decision to Disposition Date: April 16, 2019 Decision to Disposition Time: 04:04 Depart Departure Latest Vital Signs Vital Signs Date Time Temp Pulse Resp B/P (MAP) Pulse Ox O2 Delivery O2 Flow Rate FiO2 04/16/19 03:44 98.1 76 17 130/90 93 Room Air Impression: Primary Impression: Urinary tract infection Additional Impressions: Serous otitis media Upper respiratory infection Condition: Improved Disposition: HOME OR SELF-CARE Patient Instructions: Serous Otitis Media (ED) Additional Instructions: Rest and increase fluids. Take Tylenol as needed for pain. Make sure to pickling operator you prescription for Cephalexin prescribed previously. Problem Qualifiers Primary Impression: Urinary tract infection Urinary tract infection type: acute cystitis Hematuria presence: without hematuria Qualified Codes: N30.00 - Acute cystitis without hematuria Additional Impressions: Serous otitis media Chronicity: acute Laterality: left Recurrence: non-recurrent Qualified Codes: H65.02 - Acute serous otitis media, left ear Upper respiratory infection URI type: unspecified viral URI Qualified Codes: J06.9 - Acute upper resp iratory infection, unspecified RENAN KOCH MD April 16, 2019 03:57
[2019-04-16] MEDS ORDERED: CEPHALEXIN 500 MG CAP TH 2 CAP/BOTTLE PO ONE (04:10)
== END 2019-04-16 04:16 | disposition home or self-care (01) ==
LOC: ER 04:00
DX: N30.00 Acute cystitis without hematuria (principal); H65.02 Acute serous otitis media, left ear; J06.9 Acute upper respiratory infection, unspecified
CPT/HCPCS: 99283

== ENCOUNTER → 2019-04-27 | Outpatient (CLI) | payer SELFPAY ==
[2018-03-14 06:00] VITALS: BMI 32.8
[2019-04-27 11:57] LABS: PLATELET COUNT, AUTOMATED 300 K/uL (150-450)
== END ==
LOC: LAB 11:06
PROVIDERS: ATTEND Student in an Organized Health Care Education/Training Program
DX: Z34.81 Encounter for supervision of other normal pregnancy, first trimester (principal)
CPT/HCPCS: 36415; 81001; 85025; 86592; 86703; 86762; 86850; 86900; 86901; 87088; 87340

== ENCOUNTER → 2019-05-01 | Outpatient (CLI) | payer SELFPAY ==
[2018-03-14 06:00] VITALS: BMI 32.8
== END ==
LOC: LAB 08:22
PROVIDERS: ATTEND Student in an Organized Health Care Education/Training Program
DX: Z34.91 Encounter for supervision of normal pregnancy, unspecified, first trimester (principal)
CPT/HCPCS: 87491; 87591

== ENCOUNTER → 2019-05-29 | Outpatient (CLI) | payer SELFPAY ==
[2018-03-14 06:00] VITALS: BMI 32.8
[~2019-05-29] MED LIST changes: +DIPH50VI24 IM; +NITR-105 PO
== END ==
LOC: LAB 11:01
PROVIDERS: ATTEND Student in an Organized Health Care Education/Training Program
DX: R30.0 Dysuria (principal); B96.20 Unspecified Escherichia coli [E. coli] as the cause of diseases classified elsewhere
CPT/HCPCS: 87077; 87088; 87186

== ENCOUNTER → 2019-06-27 | Outpatient (CLI) | payer SELFPAY ==
[2018-03-14 06:00] VITALS: BMI 32.8
[~2019-06-27] MED LIST changes: +HYDR275A SQ
== END ==
LOC: LAB 09:59
PROVIDERS: ATTEND Obstetrics & Gynecology
DX: Z36.0 Encounter for antenatal screening for chromosomal anomalies (principal)
CPT/HCPCS: 36415; 81511